=== PATIENT | female | born 1955 | race Caucasian/White ===

== ENCOUNTER 2023-09-01 21:52 | Emergency (ER) | payer MEDICARE, MEDICAID ==
[~2023-09-01] VITALS: Ht 162.6 cm; Wt 55.0 kg
[~2023-09-01 21:52] MED LIST: ATOR20TA PO; HYDR50CA7 PO; PANT-31 PO; QUET25TA PO; TRAZ-257 PO; VENL-68 PO
[2023-09-01 21:58] VITALS: TEMP 98
[2023-09-01] MEDS ORDERED: SODIUM CHLORIDE 0.9% 1,000 ML IV ONE (22:15)
[2023-09-01 22:33] LABS: EOSINOPHILS % (AUTO) 2.7 % (1.0-6.0); HEMATOCRIT 38.5 % (36-46); HEMOGLOBIN 12.5 g/dL (12.0-16.0); LYMPHOCYTES # (AUTO) 2.6 K/uL (1.0-4.8); LYMPHOCYTES % (AUTO) 23.5 % (22.0-44.0); MEAN CORPUSCULAR HEMOGLOBIN 29.1 pg (26.0-34.0); MEAN CORPUSCULAR HGB CONC 32.5 G/dL (31.0-37.0); MEAN CORPUSCULAR VOLUME 90 fL (80-100); MONOCYTES # (AUTO) 1.1 K/uL (0.1-1.0); MONOCYTES % (AUTO) 10.2 % (2.0-9.0); NEUTROPHILS # (AUTO) 6.9 K/uL (1.8-7.7); NEUTROPHILS % (AUTO) 62.6 % (40.0-70.0); PLATELET COUNT (AUTO) 280 K/uL (150-450); RED CELL DISTRIBUTION WIDTH 13.3 % (11.5-14.5)
[2023-09-01 22:41] LABS: ANION GAP 8 mmol/L (8-16); CALCIUM, TOTAL 9.1 mg/dL (8.8-10.5); CARBON DIOXIDE 25 mmol/L (22-29); CHLORIDE 101 mmol/L (98-107); CREATININE 0.71 mg/dL (0.60-1.30); GLOMERULAR FILTR. RATE CALC > 60 mL/min (>60); GLUCOSE,RANDOM 211 mg/dL (70-110); POTASSIUM 3.7 mmol/L (3.5-5.1); SODIUM SERUM 134 mmol/L (136-145); UREA NITROGEN, BLOOD 25 mg/dL (7-18)
[2023-09-01 22:46] LABS: ALANINE AMINOTRANSFERASE 17 U/L (12-78); ALBUMIN 3.3 g/dL (3.4-5.0); ALKALINE PHOSPHATASE 123 U/L (46-116); ASPARTATE AMINOTRANSFERASE 11 U/L (15-37); BILIRUBIN,TOTAL 0.3 mg/dL (0.1-1.0); TOTAL PROTEIN, SERUM 7.2 g/dL (6.4-8.2)
[2023-09-01 22:49] LABS: TROPONIN I-HIGH SENSITIVITY 4 ng/L (<51)
[2023-09-02 03:11] VITALS: BP 122/72; PULSE 78; RESP 17
[2023-09-06] MEDS ORDERED: VENL-67 PO (11:55)
== END 2023-09-02 03:12 | disposition home or self-care (01) ==
LOC: EMS 21:53
DX: S80.212A Abrasion, left knee, initial encounter (principal); R53.1 Weakness; R55 Syncope and collapse; F31.9 Bipolar disorder, unspecified; E78.00 Pure hypercholesterolemia, unspecified; F20.9 Schizophrenia, unspecified; Z90.710 Acquired absence of both cervix and uterus; Z88.2 Allergy status to sulfonamides; W18.39XA Other fall on same level, initial encounter; Y93.01 Activity, walking, marching and hiking; Y92.89 Other specified places as the place of occurrence of the external cause; Y99.8 Other external cause status
CPT/HCPCS: 99284; 96360; 70450; 80053; 84484; 85025; 36415; 73562; 93005; J7030

== ENCOUNTER 2023-09-17 10:54 | Emergency (ER) | payer MEDICARE, MEDICAID ==
[~2023-09-17] VITALS: Ht 157.5 cm; Wt 61.4 kg
[~2023-09-17 10:54] MED LIST changes: +VENL-67 PO; -VENL-68 PO
[2023-09-17 11:10] VITALS: TEMP 98.5
[2023-09-17 14:43] VITALS: BP 126/74; PULSE 77; RESP 16
== END 2023-09-17 14:43 | disposition short-term general hospital (02) ==
LOC: EMS 11:28
DX: M79.642 Pain in left hand (principal); F31.9 Bipolar disorder, unspecified; E78.00 Pure hypercholesterolemia, unspecified; F20.9 Schizophrenia, unspecified; Z90.710 Acquired absence of both cervix and uterus; Z88.2 Allergy status to sulfonamides
CPT/HCPCS: 99285; 73130-TC; Z7502